=== PATIENT | male | born 1950 | race Caucasian/White ===

== ENCOUNTER 2020-03-12 14:20 | Inpatient (IN) ==
--- NOTE | 2020-03-12 14:38 | Emergency Department Note ---
History of Present Illness General Chief complaint: Syncope Stated complaint: Syncope Time Seen by Provider: 03/12/20 14:22 Source: patient, family and EMS Mode of arrival: EMS Limitations: other (Alzheimer's dementia) History of Present Illness Provider complaint: Syncope Onset (ago): minute(s) Location: head Pain Consistency: + now resolved Quality: + other (Syncope) Relieved By: + none Associated symptoms: + chest pain (Granddaughter noted to his that "he did not feel good in the chest yesterday") and + syncope; no nausea/vomiting and no shortness of breath This is a 69-year-old male with Alzheimer's dementia presenting after a syncopal episode. I did obtain history from the patient's as well as EMS. According to the patient's the patient was sitting in our office. He then fell to the ground and when she went to help him get up he was extremely off balance and she sat him down in a chair. He subsequently passed out for a few minutes. He was completely unresponsive and she felt like his breathing had stopped to some degree. He did not require rescue breathing or CPR. He was incontinent of urine and he started to wake up once EMS arrived. At this time the patient has no complaints. He states that he has no headache, chest pain, shortness of breath, abdominal pain, vomiting or diarrhea, cough or cold symptoms or fever. He does remember passing out and said it was quite sudden. His granddaughter told his yesterday that "he did not feel good in the [address] His did not know what she meant by that. He currently denies any chest discomfort or pain. Home Medications Home Medications Medication Instructions Recorded Confirmed Type ascorbic acid (vitamin C) [Vitamin 500 mg PO QAM 03/12/20 03/12/20 History C] atorvastatin 10 mg PO HS 03/12/20 03/12/20 History cholecalciferol (vitamin D3) 1,000 unit PO QAM 03/12/20 03/12/20 History [Vitamin D3] donepezil 20 mg PO QAM 03/12/20 03/12/20 History memantine 10 mg PO BID 03/12/20 03/12/20 History ziprasidone HCl 40 mg PO BIDM 03/12/20 03/12/20 History Allergies Allergy/AdvReac Type Severity Reaction Status Date / Time No Known Allergies Allergy Verified 03/12/20 16:03 Past Med/Surg History Medical History (Updated 03/12/20 @ 16:23 by Donny Bourgeois MD) Alzheimer's disease Social History (Updated 03/12/20 @ 14:36 by Donny Bourgeois MD) marital status: Current Living Situation: Spouse Feels Safe at Home: Yes Smoking Status: Never smoker Review of Systems See HPI for pertinent positives & negatives. and A total of 10 systems reviewed and were otherwise negative Physical Exam Vital Signs Vital Signs - 24 hr 03/12/20 14:25 03/12/20 14:26 03/12/20 14:30 Temperature Temperature Source Pulse Rate 65 66 Pulse Rate from SpO2 Sensor 67 64 Respiratory Rate 16 16 Respiratory Effort / Characteristics Respiratory Depth Respiratory Pattern Blood Pressure - Lying Blood Pressure - Sitting Blood Pressure- Standing Blood Pressure 151/79 H 145/84 H Blood Pressure Mean 95 94 Blood Pressure Position Pulse Oximetry 100 100 Oxygen Delivery Method Sepsis Recent Fever Within 48 Hours Sepsis Action Taken by Nursing 03/12/20 14:40 03/12/20 14:49 03/12/20 14:50 Temperature 36.7 C Temperature Source Oral Pulse Rate 68 68 67 Pulse Rate from SpO2 Sensor 66 66 Respiratory Rate 16 18 22 Respiratory Effort / Characteristics Non-Labored Respiratory Depth Normal Respiratory Pattern Regular Blood Pressure - Lying Blood Pressure - Sitting Blood Pressure- Standing Blood Pressure 151/79 H Blood Pressure Mean 103 Blood Pressure Position Sitting Pulse Oximetry 100 96 99 Oxygen Delivery Method Room Air Room Air Sepsis Recent Fever Within 48 Hours No Sepsis Action Taken by Nursing No Action Required 03/12/20 15:00 03/12/20 15:01 03/12/20 15:03 Temperature Temperature Source Pulse Rate 77 64 Pulse Rate from SpO2 Sensor 70 70 65 Respiratory Rate 16 14 Respiratory Effort / Characteristics Respiratory Depth Respiratory Pattern Blood Pressure - Lying Blood Pressure - Sitting Blood Pressure- Standing Blood Pressure 136/77 135/75 Blood Pressure Mean 103 104 Blood Pressure Position Pulse Oximetry 100 99 99 Oxygen Delivery Method Sepsis Recent Fever Within 48 Hours Sepsis Action Taken by Nursing 03/12/20 15:05 03/12/20 15:09 03/12/20 15:10 Temperature Temperature Source Pulse Rate 77 63 Pulse Rate from SpO2 Sensor Respiratory Rate 16 17 Respiratory Effort / Characteristics Respiratory Depth Respiratory Pattern Blood Pressure - Lying 136/77 Blood Pressure - Sitting 135/75 Blood Pressure- Standing 147/79 H Blood Pressure 147/79 H Blood Pressure Mean 90 Blood Pressure Position Pulse Oximetry Oxygen Delivery Method Sepsis Recent Fever Within 48 Hours Sepsis Action Taken by Nursing 03/12/20 15:33 03/12/20 15:40 03/12/20 15:50 Temperature Temperature Source Pulse Rate 67 64 63 Pulse Rate from SpO2 Sensor 66 64 Respiratory Rate 16 18 19 Respiratory Effort / Characteristics Respiratory Depth Respiratory Pattern Blood Pressure - Lying Blood Pressure - Sitting Blood Pressure- Standing Blood Pressure Blood Pressure Mean Blood Pressure Position Pulse Oximetry 98 99 Oxygen Delivery Method Sepsis Recent Fever Within 48 Hours Sepsis Action Taken by Nursing 03/12/20 16:00 03/12/20 16:10 Temperature Temperature Source Pulse Rate 68 63 Pulse Rate from SpO2 Sensor 63 Respiratory Rate 15 16 Respiratory Effort / Characteristics Respiratory Depth Respiratory Pattern Blood Pressure - Lying Blood Pressure - Sitting Blood Pressure- Standing Blood Pressure 133/73 Blood Pressure Mean 90 Blood Pressure Position Pulse Oximetry 100 Oxygen Delivery Method Sepsis Recent Fever Within 48 Hours Sepsis Action Taken by Nursing Constitutional: Vital signs reviewed. Eyes: Pupils are equal round reactive to light. Conjunctiva are noninjected. ENT: Pharynx is clear without erythema or exudate. Mucous membranes are moist. Neck supple without meningeal signs. No midline tenderness to cervical spine. Respiratory: Clear to auscultation bilaterally. Breath sounds are equal bilaterally. Cardiovascular: Regular rate and rhythm. No rubs or gallops. GI: Soft, nondistended and nontender. Bowel sounds are present. Musculoskeletal: No peripheral edema. No lower extremity tenderness. No hip tenderness. Integumentary: No cyanosis. or jaundice. Neurologic: The patient is awake and alert. Cranial nerves II-XII are intact. Motor is 5 out of 5 all extremities. Sensation is intact to light touch all extremities. Normal speech. No pronator drift. Psychiatric: Normal affect. Not anxious appearing. Medical Decision Making Differential Diagnosis Syncope, hypotension, orthostasis, anemia, dysrhythmia, seizure Medical Records Attestation: I reviewed the patient's medical records. I did perform a limited focused review of portions of the patient's old chart on the electronic medical record. The patient has had no prior visits to this hospital. Home Medications Current Medication List: was personally reviewed by me Laboratory Data Attestation: I reviewed the patient's lab results. Result diagrams: 03/12/20 14:45 03/12/20 14:45 Lab Results 03/12/20 03/12/20 Range/Units 14:45 14:45 WBC 4.33 L (4.8-10.8) K/uL RBC 4.66 L (4.7-6.1) M/uL Hgb 13.7 L (14.0-18.0) g/dL Hct 41.2 L (42-52) % MCV 88.4 (80-100) fL MCH 29.4 (25-34) pg MCHC 33.3 (32-36) g/dL RDW Std Deviation 44.5 (36.4-46.3) fL RDW Coeff of Faizan 13.8 (11.5-14.5) % Plt Count 186 (130-400) K/uL MPV 10.1 (7.4-10.4) fL Immature Gran % (Auto) 0.2 % Neut % (Auto) 72.9 % Lymph % (Auto) 21.0 % [place] % (Auto) 4.8 % Eos % (Auto) 0.9 % Baso % (Auto) 0.2 % Immature Gran # (Auto) 0.01 (0.00-0.02) K/uL Neut # (Auto) 3.15 (1.4-6.5) K/uL Lymph # (Auto) 0.91 L (1.2-3.4) K/uL [place] # (Auto) 0.21 (0.11-0.59) K/uL Eos # (Auto) 0.04 (0-0.5) K/uL Baso # (Auto) 0.01 (0-0.2) K/uL Sodium 139 (136-145) mmol/L Potassium 3.7 (3.5-5.1) mmol/L Chloride 107 (98-107) mmol/L Carbon Dioxide 25 (21-32) mmol/L Anion Gap 7.0 (3-11) BUN 16 (7-18) mg/dl Creatinine 1.27 (0.6-1.4) mg/dl Est Cr Clr Drug Dosing 59.4 ml/min Est GFR ( Amer) 65.9 Est GFR (Non-Af Amer) 56.9 BUN/Creatinine Ratio 12.4 (10-20) Glucose 108 H (70-99) mg/dl Calcium 8.4 L (8.5-10.1) mg/dl Magnesium 2.2 (1.8-2.4) mg/dl Total Bilirubin 0.3 (0.2-1) mg/dl AST 15 (15-37) U/L ALT 23 (12-78) U/L Alkaline Phosphatase 83 (45-117) U/L Troponin I < 0.015 (0-0.045) ng/ml Total Protein 7.2 (6.4-8.2) gm/dl Albumin 3.8 (3.4-5.0) gm/dl Globulin 3.4 (2.5-4.0) gm/dl Albumin/Globulin Ratio 1.1 (0.9-2) TSH 1.760 (0.300-4.500) uIu/ml Imaging Data Radiologist's Impression: T head/brain wo con CLINICAL HISTORY: Head pain status post trauma COMPARISON STUDY: No previous studies for comparison. TECHNIQUE: Axial CT of the brain is performed from the vertex to the skull base. IV contrast was not administered for this examination. A dose lowering technique was utilized adhering to the principles of ALARA. CT DOSE: 1460.73 mGy.cm FINDINGS: No intra or extra-axial mass lesions are visualized. There is no CT evidence of acute cortical infarction. There is no evidence of midline shift. There is no acute hemorrhage. No calvarial fractures are visualized. There are patchy white matter hypodensities likely on a small vessel basis. There is mild ventricular dilatation, likely secondary to volume loss There is no evidence of acute sinusitis IMPRESSION: No acute intracranial findings ACT 112: Negative or not required by law. Electronically signed by: Idris Deras M.D. 03/12/2020 3:32 PM XR chest 1V portable CLINICAL HISTORY: syncope COMPARISON STUDY: No previous studies for comparison. FINDINGS: The cardiac and mediastinal contours are normal. There is no evidence of focal pulmonary consolidation. There is no evidence of failure. No pleural effusions are visualized.[ IMPRESSION: No active disease in the chest. ACT 112: Negative or not required by law. Electronically signed by: Idris Deras M.D. 03/12/2020 2:[address] OF THE CERVICAL SPINE CLINICAL HISTORY: Neck pain status post trauma COMPARISON STUDY: No previous studies for comparison. CT DOSE: TECHNIQUE: CT scan of the cervical spine was performed from the skull base to the thoracic inlet. Images are reviewed in the axial, sagittal, and coronal planes. IV contrast was not administered for this examination. A dose lowering technique was utilized adhering to the principles of ALARA. FINDINGS: The visualized portions of the lung apices reveal no evidence of pneumothorax. There is a 7 mm right apical pulmonary nodule which while nonspecific likely is secondary to pleural-parenchymal apical scarring The prevertebral soft tissues are normal. No fractures or traumatic subluxations are visualized. 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 There are multilevel degenerative changes IMPRESSION: 1. No evidence of acute fracture or traumatic subluxation 2. Nonspecific 7 mm right apical pulmonary nodule, possibly secondary to pleural-parenchymal scarring. A 12 month follow-up CT scan is recommended. ECG Data Attestation: I personally reviewed and interpreted this ECG as follows: Indication: + syncope Rate (beats per minute): 63 Rhythm: + normal sinus ECG Intervals/blocks: no First degree AV block ECG ST segments: no ST elevation ECG Findings: + PVCs Blood Pressure Blood Pressure Findings: Elevated blood pressure Blood Pressure Disposition: Referred to patients primary care provider Head Trauma GCS Score: 15 MDM Narrative I did evaluate the patient as noted above. I did obtain history from the patie nt as well as his and EMS due to the nature of the chief complaint as well as his Alzheimer's dementia. IV access was established. The patient was placed on a continuous playground monitor. Cardiac monitoring: Indication: Syncope Rate and rhythm: Normal sinus rhythm rate of 63 I did order and personally review the patient's 12-lead EKG as described above. He has no acute ischemic changes on his twelve-lead EKG. I did order and personally reviewed the images of the patient's chest x-ray as described above. Chest ray does not show any widening of the mediastinum or infiltrate. I did order a urine analysis. I did order and review the patient's blood work as noted in the electronic medical record. He has mild leukopenia and anemia. Electrolytes are unremarkable. Troponin and TSH are negative. I did order a CT of the head and cervical spine. I did review the images myself as well as the radiology report as described above. There is no evidence of acute intracranial abnormality or cervical fracture. He does have a right apical pulmonary nodule. I did discuss the test results with the patient and his . He remains asymptomatic currently. I did recommend hospitalization for further care and evaluation. I did discuss case with hospitalist and case worker. Impression & Plan Syncope, Fall Discharge Plan Visit Data Chief Complaint: Syncope Stated Complaint: Syncope ED Provider: Donny Bourgeois Discharge Problem: Syncope, Fall Patient Disposition: Being Evaluated by Hospitalist Condition: Good Forms Stand Alone Forms: My [facility] Prescriptions Prescriptions: No Action atorvastatin 10 mg tablet 10 mg PO HS RF: 0 donepezil 10 mg tablet 20 mg PO QAM RF: 0 ziprasidone HCl 20 mg capsule 40 mg PO BIDM RF: 0 ascorbic acid (vitamin C) [Vitamin C] 500 mg Tablet 500 mg PO QAM RF: 0 cholecalciferol (vitamin D3) [Vitamin D3] 25 mcg (1,000 unit) Capsule 1,000 unit PO QAM RF: 0 memantine 10 mg tablet 10 mg PO BID RF: 0 Referrals Referrals: PCP,NO [Primary Care Provider] - Discharge Problem: Syncope Qualifiers: Syncope type: unspecified Qualified Code(s): R55 - Syncope and collapse Fall Qualifiers: Encounter type: initial encounter Qualified Code(s): W19.XXXA - Unspecified fall, initial encounter
[2020-03-12 14:52] LABS: Basophils # (auto) 0.01 K/uL (0-0.2); Basophils % (auto) 0.2 %; Eosinophils # (auto) 0.04 K/uL (0-0.5); Eosinophils % (auto) 0.9 %; Hematocrit (blood only) 41.2 % (42-52); Hemoglobin 13.7 g/dL (14.0-18.0); Immature Granulocytes # (auto) 0.01 K/uL (0.00-0.02); Immature Granulocytes % (auto) 0.2 %; Lymphocytes # (auto) 0.91 K/uL (1.2-3.4); Mean Corpuscular Hemoglobin 29.4 pg (25-34); Mean Corpuscular Hgb Conc 33.3 g/dL (32-36); Mean Corpuscular Volume 88.4 fL (80-100); Mean Platelet Volume 10.1 fL (7.4-10.4); Monocytes # (auto) 0.21 K/uL (0.11-0.59); Monocytes % (auto) 4.8 %; Neutrophils # (auto) 3.15 K/uL (1.4-6.5); Neutrophils % (auto) 72.9 %; Platelet Count 186 K/uL (130-400); RDW Coefficient of Variation 13.8 % (11.5-14.5); RDW Standard Deviation 44.5 fL (36.4-46.3); Red Blood Count 4.66 M/uL (4.7-6.1); White Blood Count 4.33 K/uL (4.8-10.8)
--- NOTE | 2020-03-12 14:58 | XRay Report ---
XR chest 1V portable CLINICAL HISTORY: syncope COMPARISON STUDY: No previous studies for comparison. FINDINGS: The cardiac and mediastinal contours are normal. There is no evidence of focal pulmonary co nsolidation. There is no evidence of failure. No pleural effusions are visualized.[ IMPRESSION: No active disease in the chest. ACT 112: Negative or not required by law. Electronically signed by: Idris Deras M.D. 03/12/2020 2:56 PM
[2020-03-12 15:09] LABS: Albumin Level 3.8 gm/dl (3.4-5.0); BUN Creatinine Ratio 12.4 (10-20); Blood Urea Nitrogen 16 mg/dl (7-18); Calcium 8.4 mg/dl (8.5-10.1); Carbon Dioxide 25 mmol/L (21-32); Chloride 107 mmol/L (98-107); Creatinine Clr Calc Pharmacy 59.4 ml/min; Est GFR (African American) 65.9; Est GFR (Non-African American) 56.9; Glucose 108 mg/dl (70-99); Magnesium 2.2 mg/dl (1.8-2.4); Potassium 3.7 mmol/L (3.5-5.1); Sodium 139 mmol/L (136-145)
[2020-03-12 15:20] LABS: Alanine Aminotransferase 23 U/L (12-78); Albumin Globulin Ratio 1.1 (0.9-2); Alkaline Phosphatase 83 U/L (45-117); Aspartate Aminotransferase 15 U/L (15-37); Bilirubin,Total 0.3 mg/dl (0.2-1); Globulin 3.4 gm/dl (2.5-4.0); Total Protein 7.2 gm/dl (6.4-8.2); Troponin I < 0.015 ng/ml (0-0.045)
--- NOTE | 2020-03-12 15:33 | CT Scan Report ---
CT head/brain wo con CLINICAL HISTORY: Head pain status post trauma COMPARISON STUDY: No previous studies for comparison. TECHNIQUE: Axial CT of the brain is performed from the vertex to the skull base. IV contrast was not administered for this examination. A dose lowering technique was utilized adhering to the principles of ALARA. CT DOSE: 1460.73 mGy.cm FINDINGS: No intra or extra-axial mass lesions are visualized. There is no CT evidence of acute cortical infarc tion. There is no evidence of midline shift. There is no acute hemorrhage. No calvarial fractures ar e visualized. There are patchy white matter hypodensities likely on a small vessel basis. There is mild ventricular dilatation, likely secondary to volume loss There is no evidence of acute sinusitis IMPRESSION: No acute intracranial findings ACT 112: Negative or not required by law. Electronically signed by: Idris Deras M.D. 03/12/2020 3:32 PM
--- NOTE | 2020-03-12 15:43 | CT Scan Report ---
CT OF THE CERVICAL SPINE CLINICAL HISTORY: Neck pain status post trauma COMPARISON STUDY: No previous studies for comparison. CT DOSE: TECHNIQUE: CT scan of the cervical spine was performed from the skull base to the thoracic inlet. Pattie ges are reviewed in the axial, sagittal, and coronal planes. IV contrast was not administered for thi s examination. A dose lowering technique was utilized adhering to the principles of ALARA. FINDINGS: The visualized portions of the lung apices reveal no evidence of pneumothorax. There is a 7 mm right apical pulmonary nodule which while nonspecific likely is secondary to pleural-parenchymal apical sca rring The prevertebral soft tissues are normal. No fractures or traumatic subluxations are visualized. The re is a C3-4 segmentation anomaly. There are multilevel degenerative changes IMPRESSION: 1. No evidence of acute fracture or traumatic subluxation 2. Nonspecific 7 mm right apical pulmonary nodule, possibly secondary to pleural-parenchymal scarring . A 12 month follow-up CT scan is recommended. Please refer to below summary of Fleischner criteria recommendations for follow-up of incidental CT n odules (Priscila Rios, Guidelines for management of small pulmonary nodules detected on CT scans: A sta tement from the Fleischner Society, Radiology 237: [phone].) SOLID NODULES Solitary nodule size: <6 mm * low risk patients: no follow-up needed * high risk patients: optional CT at 12 months Solitary nodule size: 6-8 mm * low risk patients: follow-up at 6-12 months, then consider further follow-up at 18-24 months * high risk patients: initial follow-up CT at 6-12 months and then at 18-24 months if no change Solitary nodule size: >8 mm * either low or high risk patients - consider follow-up CT at 3 months, and/or CT-PET, and/or biopsy Multiple nodules size: <6 mm * low risk patients: no routine follow-up * high risk patients: optional CT at 12 months Multiple nodules size: 6-8 mm * low risk patients: follow-up at 3-6 months, then consider further follow-up at 18-24 months * high risk patients: follow-up at 3-6 months, then at 18-24 months if no change Multiple nodules size: >8 mm * low risk patients: follow-up at 3-6 months, then consider further follow-up at 18-24 months * high risk patients: follow-up at 3-6 months, then at 18-24 months if no change Note: newly detected indeterminate nodule in persons 35 years of age or older. * low risk patients: minimal or absent history of smoking and/or other known risk factors * high risk patients: history of smoking or of other known risk factors (e.g. first degree relative with lung cancer, or exposure to asbestos, radon, uranium) * if a nodule up to 8 mm is partly solid or is ground glass further follow-up is required after 24 m onths to exclude possible slow growing adenocarcinoma (ROSEANNA) SUBSOLID NODULES Solitary pure ground-glass nodule * nodule size <6 mm - no CT follow-up required * nodule size >=6 mm - follow-up CT at 6-12 months, then every 2 years until 5 years Solitary part-solid nodule * nodule size <6 mm - no CT follow-up required * nodule size >=6 mm - follow-up CT at 3-6 months. If unchanged, and solid component remains <6 mm, then annual follow-up for 5 years Multiple subsolid nodules * nodule size <6 mm - follow-up CT at 3-6 months, consider further follow-up at 2 and 4 years if sta ble * nodule size >=6 mm - follow-up CT at 3-6 months, subsequent management based on the most suspiciou s nodule(s) ACT 112: Negative or not required by law. Electronically signed by: Idris Deras M.D. 03/12/2020 3:42 PM
--- NOTE | 2020-03-12 17:29 | History & Physical Report ---
Date of Service March 12, 2020 Assessment & Plan (1) Fall: Initial fall appears mechanical although not witnessed he has falling before after turning too quickly. No B12 level noted in Open[employer] therefore will get this to assess for sensory ataxia and dementia. TSH 1.76. No injuries on CT head or c-spine from fall. No injuries of back or hips based on examine although given dementia this is somewhat limited and would have a low tolerance. Falls risk precautions (2) Syncope: Syncope occurred after his original fall Admit to med/surg with tele to assess for arrhythmia although this appears unlikely given history provided Likely element of dehydration and vasovagal after mechanical fall as above. Start orthostatics qshift in AM (3) Alzheimer's disease: Continue Aricept and Memantine Ziprasidone for behavioral disturbances His reports this has been significantly progressive for the past 2 years but feels they were managing at home prior to this (4) Hyperlipidemia: Continue atorvastatin 10mg PO daily (5) Pulmonary nodule: Noted on CT cervical spine Needs to be discussed with his but suspect given progression of dementia no follow up is required for this (6) DVT prophylaxis: Lovenox 40mg SQ daily PT/OT evals Discharge planning to make sure he is safe to return home Admission and Anticipated Discharge Date Admission Date: 03/12/2020 History of Present Illness Chief Complaint: Syncope Primary Care Provider: NO PCP Tyree Hung is a 69 year old male with Alzheimer dementia who presents to the ER due to a syncopal event. No history was obtainable from the patient due to dementia. From discussion with his over the phone. 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 Stood up took to take coin out of pocket and when he turned he fell to the ground. She thinks he just tripped over his own feet. She was in the room but not looking towards the patient at that time but does not think he lost consciousness. When he tried to get up he became very disorientated and unable to walk. Eyes fluttering back. Shallow breathing. Drooling from his mouth and passed urine. She tried to get him to stand up but head flexed forward and he suddenly gasped a breath so she think he was cutting off his airway and was not conscious at this time. Sweating profusely. She notes he told their daughter yesterday he may not have felt good in his chest but otherwise has been his normal self recently. Regular diet, no problems with dysphagia or aspirations. She notes significant progressive decline in his dementia over the last 2 years. Allergies Allergy/AdvReac Type Severity Reaction Status Date / Time No Known Allergies Allergy Verified 03/12/20 16:03 Home Medications Home Medications Medication Instructions Recorded Confirmed Type ascorbic acid (vitamin C) [Vitamin 500 mg PO QAM 03/12/20 03/12/20 History C] atorvastatin 10 mg PO HS 03/12/20 03/12/20 History cholecalciferol (vitamin D3) 1,000 unit PO QAM 03/12/20 03/12/20 History [Vitamin D3] donepezil 20 mg PO QAM 03/12/20 03/12/20 History memantine 10 mg PO BID 03/12/20 03/12/20 History ziprasidone HCl 40 mg PO BIDM 03/12/20 03/12/20 History Past Med/Surg History Medical History (Updated 03/12/20 @ 21:01 by Alexis Pang MD) Alzheimer's disease Social History (Updated 03/12/20 @ 14:36 by Donny Bourgeois MD) Preferred Language: [place] [employer]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 Beliefs That Will Affect Care: Buddhism Buddhism Beliefs: Scientologist marital status: Current Living Situation: Spouse Other Information That Helps Us Care for You: No Feels Safe at Home: Yes Safety Concerns: Feels Safe At This Time Smoking Status: Never smoker Hx Alcohol Use: No Hx Substance Use: No Review of Systems Review of Systems: Unobtainable due to cognitive status Physical Exam Constitutional: WD/WN, vitals as above cooperative and comfortable Eyes: + anicteric sclerae, PERRL, EOM intact bilaterally and + abnormal pupil size (miosis equal b/l) ENMT: external ear and nose normal, oropharynx normal Neck: trachea midline, no thyromegaly Respiratory: normal respiratory effort, lungs clear to auscultation Cardiovascular: RRR, no murmur, no edema Vessels: no JVD Extremities: normal capillary refill Gastrointestinal (Abdomen): normal bowel sounds, soft, nontender, no hepatosplenomegaly Musculoskeletal: no cyanosis or clubbing, extremities motor strength 5/5 Skin: no rashes, warm and dry Neurologic: moves all extremities, awake and + confused; no focal motor deficits Speech / Cognition: normal speech Motor/Sensory: + pronator drift (equal b/l, suspect lack of understanding rather than weakness); no tremor Psychiatric: Orientation: alert; + not oriented x 3 (even to his 's name) Genitourinary: no CVA tenderness Lymphatic: no cervical or axillary lymphadenopathy Results & Data Results & Data ([facility]) Vital Signs (Past 12 Hours) Vital Signs Temp Pulse Resp BP Pulse Ox 03/12/20 16:10 63 16 100 03/12/20 16:00 68 15 133/73 03/12/20 15:50 63 19 03/12/20 15:40 64 18 99 03/12/20 15:33 67 16 98 03/12/20 15:10 63 17 03/12/20 15:05 77 16 147/79 H 03/12/20 15:03 64 14 135/75 99 03/12/20 15:01 77 16 136/77 99 03/12/20 15:00 100 03/12/20 14:50 67 22 99 03/12/20 14:49 68 18 96 03/12/20 14:40 36.7 C 68 16 151/79 H 100 03/12/20 14:30 66 16 145/84 H 100 03/12/20 14:26 65 16 100 03/12/20 14:25 151/[address] head/brain wo con IMPRESSION: No acute intracranial findings CT OF THE CERVICAL SPINE IMPRESSION: 1. No evidence of acute fracture or traumatic subluxation 2. Nonspecific 7 mm right apical pulmonary nodule, possibly secondary to pleural-parenchymal scarring. A 12 month follow-up CT scan is recommended. XR chest 1V portable IMPRESSION: No active disease in the chest. ECG Indication: syncope Rate (beats per minute): 63 Rhythm: normal sinus Findings: + PVC Comparison ECG Date: no prior available Code Status & VTE Plan Code Status DNR/DNI as discussed with his VTE Prophylaxis Plan VTE Prophylaxis will be ordered: Yes Reason for no VTE mechanical prophylaxis: Contraindicated (Falls risk) PG Care Time/CCT Total # of Minutes Spent Total Time Spent with Patient: Total time spent is greater than 50% in coordination of care (as documented) at patient's floor/unit and/or counseling patient: Coding Level of Care Code 32535 Initial Inpt Care Lvl 3 Diagnoses Fall W19.XXXA Encounter type: initial encounter Syncope R55 Syncope type: unspecified Alzheimer's disease G30.1; F02.81 Alzheimer's disease onset: late-onset Dementia behavioral disturbance: with behavioral disturbance Hyperlipidemia E78.5 Hyperlipidemia type: unspecified Pulmonary nodule R91.1 DVT prophylaxis Z29.9 (1) Alzheimer's disease Alzheimer's disease onset: late-onset Dementia behavioral disturbance: with behavioral disturbance Qualified Code(s): G30.1 - Alzheimer's disease with late onset; F02.81 - Dementia in other diseases classified elsewhere with behavioral disturbance (2) Hyperlipidemia Hyperlipidemia type: unspecified Qualified Code(s): E78.5 - Hyperlipidemia, unspecified (3) Syncope Syncope type: unspecified Qualified Code(s): R55 - Syncope and collapse (4) Fall Encounter type: initial encounter Qualified Code(s): W19.XXXA - Unspecified fall, initial encounter
[2020-03-12] MEDS ORDERED: PNEUMOCOCCAL ADMINISTRATION CHARGE ONE (19:14)
[2020-03-12] MEDS ORDERED: PNEUMOCOCCAL POLYSACCHARIDES 25 MCG/0.5 ML VIAL/SYR IM ONE (19:14)
[2020-03-12] MEDS ORDERED: POLYETHYLENE (MIRALAX) 17 GM PACK PO PRN (19:48)
[2020-03-12] MEDS ORDERED: ACETAMINOPHEN 325 MG TAB PO PRN (19:48)
[2020-03-12] MEDS ORDERED: ONDANSETRON INJ 2 MG/ML 2 ML VIAL IV PRN (19:48)
[2020-03-12] MEDS: ATORVASTATIN 10 MG TAB PO SCH (20:10)
[2020-03-12] MEDS: MEMANTINE HCL 10 MG TAB PO SCH (20:11)
[2020-03-12] MEDS: ENOXAPARIN INJ 40 MG/0.4 ML SYR SQ SCH (20:11)
[2020-03-12 23:48] LABS: Appearance Urine Clear (Clear); Bilirubin Urine Negative (Negative); Blood Urine Negative (Negative); Color Urine Yellow; Glucose Urine UA Negative (Negative); Ketones Urine Negative (Negative); Leukocyte Esterase Urine Negative (Negative); Nitrite Urine Negative (Negative); Protein Urine Negative (Negative); Specific Gravity Urine 1.017 (1.000-1.030); Urobilinogen Urine Negative (Negative); pH Urine 5.5 (4.5-7.5)
[2020-03-13] MEDS: ASCORBIC ACID 500 MG TAB PO SCH (07:52)
[2020-03-13] MEDS: CHOLECALCIFEROL 1,000 UNITS 25 MCG TAB PO SCH (07:52)
[2020-03-13] MEDS: MEMANTINE HCL 10 MG TAB PO SCH ×2 (07:53→22:03)
[2020-03-13 08:00] LABS: Basophils # (auto) 0.01 K/uL (0-0.2); Basophils % (auto) 0.2 %; Eosinophils # (auto) 0.04 K/uL (0-0.5); Eosinophils % (auto) 0.7 %; Hematocrit (blood only) 40.5 % (42-52); Hemoglobin 13.4 g/dL (14.0-18.0); Immature Granulocytes # (auto) 0.01 K/uL (0.00-0.02); Immature Granulocytes % (auto) 0.2 %; Lymphocytes # (auto) 1.45 K/uL (1.2-3.4); Lymphocytes % (auto) 25.2 %; Mean Corpuscular Hemoglobin 29.3 pg (25-34); Mean Corpuscular Hgb Conc 33.1 g/dL (32-36); Mean Corpuscular Volume 88.6 fL (80-100); Mean Platelet Volume 10.3 fL (7.4-10.4); Monocytes # (auto) 0.48 K/uL (0.11-0.59); Monocytes % (auto) 8.3 %; Neutrophils # (auto) 3.77 K/uL (1.4-6.5); Neutrophils % (auto) 65.4 %; Platelet Count 201 K/uL (130-400); RDW Coefficient of Variation 14.1 % (11.5-14.5); RDW Standard Deviation 45.8 fL (36.4-46.3); Red Blood Count 4.57 M/uL (4.7-6.1); White Blood Count 5.76 K/uL (4.8-10.8)
[2020-03-13 08:09] LABS: INR 1.1 (0.9-1.1); Partial Thromboplastin Time 28.8 Seconds (21.0-31.0); Prothrombin Time 11.1 Seconds (9.0-12.0)
[2020-03-13] MEDS ORDERED: DONEPEZIL HCL 10 MG TAB PO SCH (09:00)
--- NOTE | 2020-03-13 09:06 | Electrocardiogram Report ---
Test Reason : Blood Pressure : / mmHG Vent. Rate : 063 BPM Atrial Rate : 063 BPM P-R Int : 166 ms QRS Dur : 076 ms QT Int : 446 ms P-R-T Axes : 042 063 047 degrees QTc Int : 456 ms Sinus rhythm with occasional Premature ventricular complexes Otherwise normal ECG No previous ECGs available Confirmed by Owen Donnelly ([id number]) on 03/13/2020 9:06:10 AM Referred By: REFERRED SELF Confirmed By:Owen Donnelly
[2020-03-13 09:15] LABS: Albumin Level 3.6 gm/dl (3.4-5.0); BUN Creatinine Ratio 12.2 (10-20); Calcium 8.6 mg/dl (8.5-10.1); Creatinine Clr Calc Pharmacy 60.1 ml/min; Est GFR (African American) 67.8; Est GFR (Non-African American) 58.5; Potassium 3.9 mmol/L (3.5-5.1)
[2020-03-13 09:16] LABS: Bilirubin,Total 0.4 mg/dl (0.2-1); Globulin 3.7 gm/dl (2.5-4.0); Total Protein 7.3 gm/dl (6.4-8.2)
--- NOTE | 2020-03-13 12:06 | Hospitalist Progress Note ---
Date of Service March 13, 2020 Assessment & Plan (1) Fall: Initial fall appears mechanical although not witnessed he has falling before after turning too quickly. B12 level normal this morning. TSH 1.76. No injuries on CT head or c-spine from fall. No injuries of back or hips based on examine although given dementia this is somewhat limited and would have a low tolerance. Falls risk precautions PT/OT consulted (2) Syncope: Syncope occurred after his original fall says that it is difficult to get him to drink much Likely element of dehydration and vasovagal after mechanical fall as above. no arrhythmia on monitor thus far, continue until discharge check echo and carotid doppler consult PT/OT review medications, certainly Aricept can cause syncope per , he has been on it for 9 years, still has quality of life, performs ADL with assistance would be hesitant to stop Aricept for just one episode of syncope perhaps consider stopping if it happens again (3) Alzheimer's disease: Continue Aricept and Memantine Ziprasidone for behavioral disturbances His reports this has been significantly progressive for the past 2 years but feels they were managing at home prior to this follows with doctor in [place] (4) Hyperlipidemia: Continue atorvastatin 10mg PO daily (5) Pulmonary nodule: Noted on CT cervical spine [address] chest in recommended, defer to PCP (6) DVT prophylaxis: Lovenox 40mg SQ daily PT/OT evals Discharge planning to make sure he is safe to return home his said she can take him home late morning or afternoon tomorrow, she has appt in the conference specialist Admission and Anticipated Discharge Date Admission Date: March 12, 2020 Anticipated date of discharge: 03/14/20 Subjective patient without any acute issues over night no syncope, no complaints ate some breakfast this morning, not a lot 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 the patient has gotten dramatically worse with his mood, behavior every since their daughter passed will get PT/OT evaluations, check echo for completeness, carotid doppler had an appt tomorrow morning, she can take patient home late morning, lunch time if he is cleared for discharge Review of Systems Review of Systems: All systems reviewed & are unremarkable except as noted in HPI & below Physical Exam Constitutional: WD/WN, vitals as above Eyes: PERRL, conjunctivae normal, anicteric sclerae ENMT: external ear and nose normal, oropharynx normal Neck: trachea midline, no thyromegaly Respiratory: normal respiratory effort, lungs clear to auscultation Cardiovascular: RRR, no murmur, no edema Gastrointestinal (Abdomen): normal bowel sounds, soft, nontender, no hepatosplenomegaly Musculoskeletal: no cyanosis or clubbing, extremities motor strength 5/5 Skin: no rashes, warm and dry Neurologic: patellar DTR's 2+ bilat, sensation intact and PERRL, EOMI, accommodation nl, no face palsy, no dysarthria Psychiatric: A+Ox3, euthymic affect Lymphatic: no cervical or axillary lymphadenopathy Results & Data Results & Data ([facility]) Vital Signs (Past 12 Hours) Vital Signs Temp Pulse Pulse Resp BP Pulse Ox 03/13/20 11:29 37.2 C 70 18 116/74 96 03/13/20 10:22 56 L 03/13/20 07:26 37.1 C 20 136/74 97 03/13/20 04:16 37.1 C 73 19 142/69 H 96 03/13/20 00:56 70 Laboratory Results Laboratory Results - last 24 hr 03/12/20 03/12/20 03/12/20 14:45 14:45 23:40 WBC 4.33 L RBC 4.66 L Hgb 13.7 L Hct 41.2 L MCV 88.4 MCH 29.4 MCHC 33.3 RDW Std Deviation 44.5 RDW Coeff of Faizan 13.8 Plt Count 186 MPV 10.1 Immature Gran % (Auto) 0.2 Neut % (Auto) 72.9 Lymph % (Auto) 21.0 Crook % (Auto) 4.8 Eos % (Auto) 0.9 Baso % (Auto) 0.2 Immature Gran # (Auto) 0.01 Neut # (Auto) 3.15 Lymph # (Auto) 0.91 L [place]ok # (Auto) 0.21 Eos # (Auto) 0.04 Baso # (Auto) 0.01 PT INR APTT PTT Ratio Sodium 139 Potassium 3.7 Chloride 107 Carbon Dioxide 25 Anion Gap 7.0 BUN 16 Creatinine 1.27 Est Cr Clr Drug Dosing 59.4 Est GFR ( Amer) 65.9 Est GFR (Non-Af Amer) 56.9 BUN/Creatinine Ratio 12.4 Glucose 108 H Calcium 8.4 L Magnesium 2.2 Total Bilirubin 0.3 AST 15 ALT 23 Alkaline Phosphatase 83 Troponin I < 0.015 Total Protein 7.2 Albumin 3.8 Globulin 3.4 Albumin/Globulin Ratio 1.1 Vitamin B12 TSH 1.760 Urine Color Yellow Urine Appearance Clear Urine pH 5.5 Ur Specific [place] 1.017 Urine Protein Negative Urine Glucose (UA) Negative Urine Ketones Negative Urine Blood Negative Urine Nitrite Negative Urine Bilirubin Negative Urine Urobilinogen Negative Ur Leukocyte Esterase Negative 03/13/20 03/13/20 03/13/20 07:22 07:22 07:22 WBC 5.76 RBC 4.57 L Hgb 13.4 L Hct 40.5 L MCV 88.6 MCH 29.3 MCHC 33.1 RDW Std Deviation 45.8 RDW Coeff of Faizan 14.1 Plt Count 201 MPV 10.3 Immature Gran % (Auto) 0.2 Neut % (Auto) 65.4 Lymph % (Auto) 25.2 Crook % (Auto) 8.3 Eos % (Auto) 0.7 Baso % (Auto) 0.2 Immature Gran # (Auto) 0.01 Neut # (Auto) 3.77 Lymph # (Auto) 1.45 Crook # (Auto) 0.48 Eos # (Auto) 0.04 Baso # (Auto) 0.01 PT 11.1 INR 1.1 APTT 28.8 PTT Ratio 1.0 Sodium 142 Potassium 3.9 Chloride 110 H Carbon Dioxide 28 Anion Gap 4.0 BUN 15 Creatinine 1.24 Est Cr Clr Drug Dosing 60.1 Est GFR ( Amer) 67.8 Est GFR (Non-Af Amer) 58.5 BUN/Creatinine Ratio 12.2 Glucose 95 Calcium 8.6 Magnesium Total Bilirubin 0.4 AST 19 ALT 28 Alkaline Phosphatase 82 Troponin I Total Protein 7.3 Albumin 3.6 Globulin 3.7 Albumin/Globulin Ratio 1.0 Vitamin B12 TSH Urine Color Urine Appearance Urine pH Ur Specific [place] Urine Protein Urine Glucose (UA) Urine Ketones Urine Blood Urine Nitrite Urine Bilirubin Urine Urobilinogen Ur Leukocyte Esterase 03/13/20 07:22 WBC RBC Hgb Hct MCV MCH MCHC RDW Std Deviation RDW Coeff of Faizan Plt Count MPV Immature Gran % (Auto) Neut % (Auto) Lymph % (Auto) [place] % (Auto) Eos % (Auto) Baso % (Auto) Immature Gran # (Auto) Neut # (Auto) Lymph # (Auto) Crook # (Auto) Eos # (Auto) Baso # (Auto) PT INR APTT PTT Ratio Sodium Potassium Chloride Carbon Dioxide Anion Gap BUN Creatinine Est Cr Clr Drug Dosing Est GFR ( Amer) Est GFR (Non-Af Amer) BUN/Creatinine Ratio Glucose Calcium Magnesium Total Bilirubin AST ALT Alkaline Phosphatase Troponin I Total Protein Albumin Globulin Albumin/Globulin Ratio Vitamin B12 426 TSH Urine Color Urine Appearance Urine pH Ur Specific [place] Urine Protein Urine Glucose (UA) Urine Ketones Urine Blood Urine Nitrite Urine Bilirubin Urine Urobilinogen Ur Leukocyte Esterase Medications Administered Current Inpatient Medications Acetaminophen (Tylenol) 650 mg PO Q4H PRN PRN Reason: Pain or Fever Stop: 04/11/20 19:47 Ascorbic Acid (Vitamin C) [facility] Stop: 04/12/20 08:59 Last Admin: 03/13/20 07:52 Dose: 500 mg Documented by: Atorvastatin Calcium (Lipitor) 10 mg PO HS [facility] Stop: 04/11/20 20:59 Last Admin: 03/12/20 20:10 Dose: 10 mg Documented by: Enoxaparin Sodium (Lovenox) 40 mg SQ Q24H [facility] Stop: 04/11/20 20:59 Last Admin: 03/12/20 20:11 Dose: 40 mg Documented by: Memantine (Namenda) 10 mg PO BID [facility] Stop: 04/11/20 20:59 Last Admin: 03/13/20 07:53 Dose: 10 mg Documented by: Ondansetron HCl (Zofran) 4 mg IV Q6H PRN PRN Reason: Nausea Stop: 04/11/20 19:47 Polyethylene Glycol (Miralax Powder Packet) 17 gm PO DAILY PRN PRN Reason: Constipation Stop: 04/11/20 19:47 Vitamin D (Vitamin D3) 1,000 units PO QAM [facility] Stop: 04/12/20 08:59 Last Admin: 03/13/20 07:52 Dose: 1,000 units Documented by: Ziprasidone (Geodon) 40 mg PO BIDM JENNIFER Stop: 04/12/20 07:59 Last Admin: 03/13/20 07:53 Dose: 40 mg Documented by: PG Care Time/CCT Total # of Minutes Spent Total Time Spent with Patient: Total time spent is greater than 50% in coordination of care (as documented) at patient's floor/unit and/or counseling patient: Coding Level of Care Code 42779 Subseq Hosp Care Lvl 2 Diagnoses Fall W19.XXXA Encounter type: initial encounter Syncope R55 Syncope type: unspecified Alzheimer's disease G30.1; F02.81 Alzheimer's disease onset: late-onset Dementia behavioral disturbance: with behavioral disturbance Hyperlipidemia E78.5 Hyperlipidemia type: unspecified Pulmonary nodule R91.1 DVT prophylaxis Z29.9 (1) Alzheimer's disease Alzheimer's disease onset: late-onset Dementia behavioral disturbance: with behavioral disturbance Qualified Code(s): G30.1 - Alzheimer's disease with late onset; F02.81 - Dementia in other diseases classified elsewhere with behavioral disturbance (2) Hyperlipidemia Hyperlipidemia type: unspecified Qualified Code(s): E78.5 - Hyperlipidemia, unspecified (3) Syncope Syncope type: unspecified Qualified Code(s): R55 - Syncope and collapse (4) Fall Encounter type: initial encounter Qualified Code(s): W19.XXXA - Unspecified fall, initial encounter
--- NOTE | 2020-03-13 16:48 | XCELERA ---
[id number]
--- NOTE | 2020-03-13 17:20 | Ultrasound Report ---
BILATERAL CAROTID DOPPLER STUDY HISTORY: Syncope. COMPARISON: None. TECHNIQUE: Real-time, grayscale, and color Doppler sonography of the carotid arteries was performed. Imaging reviewed in the transverse and longitudinal planes. All measurements were calculated based on NASCET criteria. FINDINGS: Antegrade flow is seen in the bilateral vertebral arteries. The brachial pressures are hemodynamically similar. Moderate calcified plaque within the bilateral carotid bifurcations resulting in less than 50% stenos is bilaterally. The peak systolic velocity within the right ICA is 65 cm/s. The right systolic ratio is 0.8. The peak systolic velocity within the left ICA is 55 cm/s. The left systolic ratio is 0.8. IMPRESSION: Moderate calcified plaque within the bilateral carotid bifurcations resulting in less than 50% stenos is bilaterally. ACT 112: Negative or not required by law. Electronically signed by: Lowell Tran M.D. 03/13/2020 5:18 PM
[2020-03-13] MEDS: ATORVASTATIN 10 MG TAB PO SCH (22:03)
[2020-03-13] MEDS: ENOXAPARIN INJ 40 MG/0.4 ML SYR SQ SCH (22:04)
[2020-03-14] MEDS: MEMANTINE HCL 10 MG TAB PO SCH (07:43)
[2020-03-14] MEDS: CHOLECALCIFEROL 1,000 UNITS 25 MCG TAB PO SCH (07:43)
[2020-03-14] MEDS: ASCORBIC ACID 500 MG TAB PO SCH (07:43)
--- NOTE | 2020-03-14 15:10 | Discharge Summary ---
Date of Service March 14, 2020 Admission HPI Per Admitting Provider Tyree Hung is a 69 year old male with Alzheimer dementia who presents to the ER due to a syncopal event. No history was obtainable from the patient due to dementia. From discussion with his over the phone. 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 Stood up took to take coin out of pocket and when he turned he fell to the ground. She thinks he just tripped over his own feet. She was in the room but not looking towards the patient at that time but does not think he lost consciousness. When he tried to get up he became very disorientated and unable to walk. Eyes fluttering back. Shallow breathing. Drooling from his mouth and passed urine. She tried to get him to stand up but head flexed forward and he suddenly gasped a breath so she think he was cutting off his airway and was not conscious at this time. Sweating profusely. She notes he told their daughter yesterday he may not have felt good in his chest but otherwise has been his normal self recently. Regular diet, no problems with dysphagia or aspirations. She notes significant progressive decline in his dementia over the last 2 years. Principal Diagnosis Syncope Discharge Exam Constitutional WD/WN, vitals as above Eyes + anicteric sclerae ENMT external ear and nose normal, oropharynx normal Neck trachea midline, no thyromegaly Respiratory normal respiratory effort, lungs clear to auscultation Cardiovascular RRR, no murmur, no edema Chest (Breasts) Chest: normal inspection of chest Gastrointestinal (Abdomen) normal bowel sounds, soft, nontender, no hepatosplenomegaly Musculoskeletal Extremities: extremities normal to inspection; no cyanosis and no clubbing Skin no rashes, warm and dry Neurologic moves all extremities and awake; no focal motor deficits Psychiatric Orientation: alert, oriented to person and cooperative Eye Contact: good eye contact Speech: normal rate/rhythm/volume of speech Affect: euthymic affect Thought Process: + thought process not goal directed Insight: + impaired insight Lymphatic no lymphedema Discharge Data Allergies Allergy/AdvReac Type Severity Reaction Status Date / Time No Known Allergies Allergy Verified 03/12/20 16:03 Consultations 03/12/20 16:17 ED Decision to Admit Stat Ordered Studies 03/12/20 14:31 CT cervical spine wo con Stat CT head/brain wo con Stat 03/13/20 15:58 US carotid doppler BI Routine Echocardiogram Chest x-ray Hospital Course (1) Syncope: Syncope occurred after his original fall says that it is difficult to get him to drink much Likely element of dehydration and vasovagal after mechanical fall as above versus vasovagal secondary to need to defecate as reports as soon as he woke up, he was not in a postictal state and reported that he had the sensation to move his bowels. He reported he did not want to go to the hospital after he was told that an ambulance was on the way, and did not seem any more confused than normal as per 's report. This does argue against a seizure, however with a history of progressive dementia, it is not out of the realm of possibilities of having a seizure. CT of the head negative Echocardiogram with preserved EF no valvular disease No arrhythmia noted on the monitor-just sinus bradycardia Vital signs have been within normal limits Carotid doppler with less than 50% stenosis bilaterally consult PT/OT appreciated-stable for discharge home 24/ care review medications, certainly Aricept can cause syncope per , he has been on it for 9 years, still has quality of life, performs ADL with assistance would be hesitant to stop Aricept for just one episode of syncope perhaps consider stopping if it happens again -Recommend follow-up with PCP and neurology (2) Fall: Initial fall appears mechanical although not witnessed he has falling before after turning too quickly. B12 level normal this morning. TSH 1.76. No injuries on CT head or c-spine from fall. No injuries of back or hips based on examine although given dementia this is somewhat limited and would have a low tolerance. Falls risk precautions PT/OT consulted and recommend return home (3) Alzheimer's disease: Continue Aricept and Memantine Ziprasidone for behavioral disturbances His reports this has been significantly progressive for the past 2 years but feels they were managing at home prior to this follows with doctor in [place] (4) Hyperlipidemia: Continue atorvastatin 10mg PO daily (5) Pulmonary nodule: Noted on CT cervical spine [address] chest in recommended, defer to PCP (6) DVT prophylaxis: Lovenox 40mg SQ daily Disposition-stable for discharge home with 24/7 care Total Time Total Time Spent Total Time Spent (In Minutes): 35 minutes Total Time Includes: Examination of the Patient, Discharge Planning and Medication Reconciliation Discharge Plan Discharge Items Patient Disposition: Home - Self-Care Reason For Visit: SYNCOPE Discharge Diagnosis: Syncope Condition on Discharge: Fair Activity: Resume your previous activity Non-emergency contact: Primary Care Provider Call non-emergency contact if: you have any medication questions and your symptoms worsen Follow-up/Referrals: PCP,NO [Primary Care Provider] - Diet: Regular Addtl Attending Provider Instructions: You were admitted after passing out at home-this is called syncope. Your work- up of your heart which was all normal, and your blood work was normal. He had no abnormal heart rhythms on the quality assurance monitor final. The description of the event does not sound like a seizure. This could be related to the sensation of having to move his bowels or urinate. It is important for him to move his bowels regularly and avoid constipation, as well as to stay hydrated with plenty of fluids by mouth. Of note, a small nodule was seen in the right upper lung on the CAT scan. There is an option to follow this with a CAT scan of the chest in 12 months to make sure that it is not growing in size. Please follow-up with his primary care physician and his neurologist within 1 month. Pending Studies at Discharge: No Stand-Alone Forms: My [facility] Medications and DC Order Prescriptions: Continued atorvastatin 10 mg tablet 10 mg PO HS RF: 0 donepezil 10 mg tablet 20 mg PO QAM RF: 0 ziprasidone HCl 20 mg capsule 40 mg PO BIDM RF: 0 ascorbic acid (vitamin C) [Vitamin C] 500 mg Tablet 500 mg PO QAM RF: 0 cholecalciferol (vitamin D3) [Vitamin D3] 25 mcg (1,000 unit) Capsule 1,000 unit PO QAM RF: 0 memantine 10 mg tablet 10 mg PO BID RF: 0 Discharge Orders: Discharge Order (Routine); Ordered 03/14/20 Ordered By: Donna Weiss Admission Data Admit Date/Time: 03/12/20 17:34 Attending Provider: Donna Weiss Admit Provider: Alexis Pang Primary Care Provider: PCP,NO Other Providers: Alexis Pang Coding Level of Care Code D/C Day Management >30 mins Diagnoses Syncope R55 Syncope type: unspecified Fall W19.XXXA Encounter type: initial encounter Alzheimer's disease G30.1; F02.81 Alzheimer's disease onset: late-onset Dementia behavioral disturbance: with behavioral disturbance Hyperlipidemia E78.5 Hyperlipidemia type: unspecified Pulmonary nodule R91.1 DVT prophylaxis Z29.9
== END 2020-03-14 15:50 | disposition home health service (06) | DRG 93 ==
LOC: ED 14:20 → 2N 17:34 → SUATTDRO 17:34 → 2N 18:21